=== PATIENT | male | born 1950 | race Caucasian/White ===

== ENCOUNTER 2018-07-04 19:26 | Observation (INO) | payer MEDICARE ==
[2018-07-04 19:41] LABS: Glucose,Whole Blood 404 mg/dL (75-99)
[2018-07-04] MEDS ORDERED: SODIUM CHLORIDE 0.9% 500 ML 500 ML IV ONE (20:22)
[2018-07-04] MEDS ORDERED: SODIUM CHLORIDE 0.9% 1,000 ML IV ONE (20:22)
[2018-07-04] MEDS ORDERED: ONDANSETRON 4 MG/2 ML VIAL IVP STA (20:22)
--- NOTE | 2018-07-04 20:26 | ED ---
General Adult HPI - General Chief complaint: Weakness Stated complaint: DM Time Seen by Provider: 07/04/18 19:58 Source: patient Mode of arrival: wheelchair Limitations: no limitations - History of Present Illness Initial comments: 68-year-old male patient with past medical history significant for type 2 diabetes mellitus, hyperlipidemia, and hypertension presents to the emergency department today for evaluation of generalized weakness, nausea, increased thirst, and frequency of urination. Patient states that he had an appointment with his physician on Thursday due to frequency of urination, dry mouth, and increased thirst and was told that his blood sugars are out of control. He was started on Levemir once daily. States he has been taking the medication over the weekend however today he became significantly more weak and dizzy. States that his mouth has been extremely dry and he cannot get enough to drink. Patient states he has been nauseated on and off throughout the day today but has not vomited. Denies any abdominal pain, chest pain, shortness of breath, focal weakness, numbness, or tingling to the extremities. States he has had increase in blurred vision. Denies any headaches. Patient denies any recent rash, fever, chills, diarrhea, constipation, back pain, numbness, tingling, hematuria, dysuria, or any other complaints. - Related Data Home Medications Medication Instructions Recorded Confirmed Aspirin [[place] Aspirin EC] 81 mg PO DAILY 07/04/18 07/04/18 Focus Macula Pro (Unknown) 1 tab PO DAILY 07/04/18 07/04/18 Hydrochlorothiazide 25 mg PO DAILY 07/04/18 07/04/18 Insulin Detemir (Levemir) [Levemir] 20 units SQ HS 07/04/18 07/04/18 Montelukast [Singulair] 10 mg PO DAILY 07/04/18 07/04/18 Pravastatin Sodium [Pravachol] 40 mg PO DAILY 07/04/18 07/04/18 Propylene Glycol/Peg 400/Pf 1 drop BOTH EYES DAILY 07/04/18 07/04/18 [Systane 0.3-0.4% Eye Drop] Valsartan [Diovan] 160 mg PO DAILY 07/04/18 07/04/18 metFORMIN HCL [Glucophage] 500 mg PO BID 07/04/18 07/04/18 Allergies Allergy/AdvReac Type Severity Reaction Status Date / Time Iodinated Contrast- Oral and Allergy Anaphylaxis Verified 07/04/18 20:45 IV Dye Review of Systems ROS Statement: Those systems with pertinent positive or pertinent negative responses have been documented in the HPI. ROS Other: All systems not noted in ROS Statement are negative. Past Medical History Past Medical History: Diabetes Mellitus, Hyperlipidemia, Hypertension History of Any Multi-Drug Resistant Organisms: None Reported Past Surgical History: Hernia Repair, Orthopedic Surgery Additional Past Surgical History / Comment(s): melanoma with three surgeries, Past Psychological History: No Psychological Hx Reported Smoking Status: Never smoker Past Alcohol Use History: None Reported Past Drug Use History: None Reported General Exam Limitations: no limitations General appearance: alert, in no apparent distress, other (Physical well- developed, well-nourished elderly male patient in no acute distress. Vital signs upon presentation are temperature 98.6F, pulse 122, respirations 18, blood pressure 106/79, pulse ox 93% on room air.) Eye exam: Present: normal appearance, PERRL, EOMI. Absent: scleral icterus, conjunctival injection, periorbital swelling ENT exam: Present: normal exam, normal oropharynx. Absent: mucous membranes moist (Dry mouth) Neck exam: Present: normal inspection. Absent: tenderness, meningismus, lymphadenopathy Respiratory exam: Present: normal lung sounds bilaterally. Absent: respiratory distress, wheezes, rales, rhonchi, stridor Cardiovascular Exam: Present: normal rhythm, tachycardia, normal heart sounds. Absent: systolic murmur, diastolic murmur, rubs, gallop, clicks GI/Abdominal exam: Present: soft, normal bowel sounds. Absent: distended, tenderness, guarding, rebound, rigid Neurological exam: Present: alert, oriented X3, CN II-XII intact, other (Strength in all 4 extremities are 5/5.) Psychiatric exam: Present: normal affect, normal mood Skin exam: Present: warm, dry, intact, normal color. Absent: rash Course Vital Signs 07/04/18 07/05/18 19:27 01:07 Temperature 98.6 F Pulse Rate 122 H Pulse Rate [ 112 H Swaging Machine Operator ] Pulse Rate [ 125 H Pulse Oximetery ] Respiratory 18 Rate Blood Pressure 106/79 Blood Pressure 87/62 [Right Arm Sitting] Blood Pressure 87/65 [Right Arm Standing] Blood Pressure 121/71 [Right Arm Supine] O2 Sat by Pulse 93 L Oximetry EKG Findings - EKG Comments: EKG Findings:: EKG obtained at 194 shows sinus tachycardia with a ventricular rate of 116, PA interval 156, QRS duration 86, QT 344, QTC 478. No evidence of ST elevation or depression. Medical Decision Making - Medical Decision Making 68-year-old male patient with past medical history significant for type 2 diabetes mellitus presents to the emergency department today for evaluation of dizziness, elevated blood sugar, dry mouth, increased thirst and frequency of urination. Patient does admit to eating cake, ice cream, pizza, and cereal over the last couple days. Physical examination is relatively unremarkable. Abdomen soft and nontender. Patient is neurologically intact with no focal deficits. Patient was given 2 L of IV fluids here in the emergency department as well as IV insulin. Blood sugars did improve however patient continued to report feeling significantly dizzy and weak. After 2 L we did check orthostatic vital signs patient did have positive orthostatics with blood pressure down to 80s systolic with a heart rate in the 120s. Patient was given an additional 1 L bolus. Patient does not have glucometer at home and does live alone, he does not feel comfortable being discharged this time. We'll admit to the hospital for dehydration and hyperglycemia. We'll consult diabetes education. We will order a sliding scale insulin for coverage in the hospital. He'll be admitted to Dr. Apodaca. - Lab Data Result diagrams: 07/04/18 19:46 07/04/18 19:46 Lab Results 07/04/18 07/04/18 07/04/18 Range/Units 19:40 19:46 19:46 WBC 8.7 (3.8-10.6) k/uL RBC 5.57 (4.30-5.90) m/uL Hgb 16.6 (13.0-17.5) gm/dL Hct 47.4 (39.0-53.0) % MCV 85.2 (80.0-100.0) fL MCH 29.9 (25.0-35.0) pg MCHC 35.1 (31.0-37.0) g/dL RDW 13.0 (11.5-15.5) % Plt Count 178 (150-450) k/uL Neutrophils % 89 % Lymphocytes % 5 % Monocytes % 4 % Eosinophils % 1 % Basophils % 0 % Neutrophils # 7.7 (1.3-7.7) k/uL Lymphocytes # 0.5 L (1.0-4.8) k/uL Monocytes # 0.4 (0-1.0) k/uL Eosinophils # 0.1 (0-0.7) k/uL Basophils # 0.0 (0-0.2) k/uL Sodium 136 L (137-145) mmol/L Potassium 4.1 (3.5-5.1) mmol/L Chloride 100 (98-107) mmol/L Carbon Dioxide 24 (22-30) mmol/L Anion Gap 12 mmol/L BUN 20 (9-20) mg/dL Creatinine 1.18 (0.66-1.25) mg/dL Est GFR (CKD-EPI)AfAm 73 (>60 ml/min/1.73 sqM) Est GFR (CKD-EPI)NonAf 64 (>60 ml/min/1.73 sqM) Glucose 385 H (74-99) mg/dL POC Glucose (mg/dL) 404 H (75-99) mg/dL POC Glu System Safety Engineer ID Arft, Ulises Calcium 9.7 (8.4-10.2) mg/dL Total Bilirubin 0.8 (0.2-1.3) mg/dL AST 37 (17-59) U/L ALT 50 (21-72) U/L Alkaline Phosphatase 81 (38-126) U/L Total Protein 7.1 (6.3-8.2) g/dL Albumin 4.3 (3.5-5.0) g/dL Urine Color Urine Appearance (Clear) Urine pH (5.0-8.0) Ur Specific [place] (1.001-1.035) Urine Protein (Negative) Urine Glucose (UA) (Negative) Urine Ketones (Negative) Urine Blood (Negative) Urine Nitrite (Negative) Urine Bilirubin (Negative) Urine Urobilinogen (<2.0) mg/dL Ur Leukocyte Esterase (Negative) Acetone, Qual Negative (Negative) 07/04/18 07/04/18 07/04/18 Range/Units 21:15 21:38 22:27 WBC (3.8-10.6) k/uL RBC (4.30-5.90) m/uL Hgb (13.0-17.5) gm/dL Hct (39.0-53.0) % MCV (80.0-100.0) fL MCH (25.0-35.0) pg MCHC (31.0-37.0) g/dL RDW (11.5-15.5) % Plt Count (150-450) k/uL Neutrophils % % Lymphocytes % % Monocytes % % Eosinophils % % Basophils % % Neutrophils # (1.3-7.7) k/uL Lymphocytes # (1.0-4.8) k/uL Monocytes # (0-1.0) k/uL Eosinophils # (0-0.7) k/uL Basophils # (0-0.2) k/uL Sodium (137-145) mmol/L Potassium (3.5-5.1) mmol/L Chloride (98-107) mmol/L Carbon Dioxide (22-30) mmol/L Anion Gap mmol/L BUN (9-20) mg/dL Creatinine (0.66-1.25) mg/dL Est GFR (CKD-EPI)AfAm (>60 ml/min/1.73 sqM) Est GFR (CKD-EPI)NonAf (>60 ml/min/1.73 sqM) Glucose (74-99) mg/dL POC Glucose (mg/dL) 336 H 398 H (75-99) mg/dL POC Glu System Safety Engineer ID Arft, Gabby Saenz A Calcium (8.4-10.2) mg/dL Total Bilirubin (0.2-1.3) mg/dL AST (17-59) U/L ALT (21-72) U/L Alkaline Phosphatase (38-126) U/L Total Protein (6.3-8.2) g/dL Albumin (3.5-5.0) g/dL Urine Color Yellow Urine Appearance Clear (Clear) Urine pH 5.5 (5.0-8.0) Ur Specific [place] 1.027 (1.001-1.035) Urine Protein Trace H (Negative) Urine Glucose (UA) 4+ H (Negative) Urine Ketones 1+ H (Negative) Urine Blood Negative (Negative) Urine Nitrite Negative (Negative) Urine Bilirubin Negative (Negative) Urine Urobilinogen <2.0 (<2.0) mg/dL Ur Leukocyte Esterase Negative (Negative) Acetone, Qual (Negative) 03/11/19 Range/Units 00:04 WBC (3.8-10.6) k/uL RBC (4.30-5.90) m/uL Hgb (13.0-17.5) gm/dL Hct (39.0-53.0) % MCV (80.0-100.0) fL MCH (25.0-35.0) pg MCHC (31.0-37.0) g/dL RDW (11.5-15.5) % Plt Count (150-450) k/uL Neutrophils % % Lymphocytes % % Monocytes % % Eosinophils % % Basophils % % Neutrophils # (1.3-7.7) k/uL Lymphocytes # (1.0-4.8) k/uL Monocytes # (0-1.0) k/uL Eosinophils # (0-0.7) k/uL Basophils # (0-0.2) k/uL Sodium (137-145) mmol/L Potassium (3.5-5.1) mmol/L Chloride (98-107) mmol/L Carbon Dioxide (22-30) mmol/L Anion Gap mmol/L BUN (9-20) mg/dL Creatinine (0.66-1.25) mg/dL Est GFR (CKD-EPI)AfAm (>60 ml/min/1.73 sqM) Est GFR (CKD-EPI)NonAf (>60 ml/min/1.73 sqM) Glucose (74-99) mg/dL POC Glucose (mg/dL) 298 H (75-99) mg/dL POC Glu System Safety Engineer ID Gabby Lazcano A Calcium (8.4-10.2) mg/dL Total Bilirubin (0.2-1.3) mg/dL AST (17-59) U/L ALT (21-72) U/L Alkaline Phosphatase (38-126) U/L Total Protein (6.3-8.2) g/dL Albumin (3.5-5.0) g/dL Urine Color Urine Appearance (Clear) Urine pH (5.0-8.0) Ur Specific [place] (1.001-1.035) Urine Protein (Negative) Urine Glucose (UA) (Negative) Urine Ketones (Negative) Urine Blood (Negative) Urine Nitrite (Negative) Urine Bilirubin (Negative) Urine Urobilinogen (<2.0) mg/dL Ur Leukocyte Esterase (Negative) Acetone, Qual (Negative) Disposition Clinical Impression: Hyperglycemia, Dehydration Disposition[facility] Condition: Serious Referrals: Samson Apodaca MD [Primary Care Provider] - 1-2 days Decision to Admit Reason: Admit from EC Decision Date: 07/05/18 Decision Time: 01:24
[2018-07-04 20:38] LABS: Basophils % (A) 0 %; Eosinophils # (A) 0.1 k/uL (0-0.7); Eosinophils % (A) 1 %; HCT 47.4 % (39.0-53.0); HGB 16.6 gm/dL (13.0-17.5); Lymphocytes # (A) 0.5 k/uL (1.0-4.8); Lymphocytes % (A) 5 %; MCH 29.9 pg (25.0-35.0); MCHC 35.1 g/dL (31.0-37.0); MCV 85.2 fL (80.0-100.0); Mean Platelet Volume 8.7; Monocytes # (A) 0.4 k/uL (0-1.0); Monocytes % (A) 4 %; Neutrophils # (A) 7.7 k/uL (1.3-7.7); Neutrophils % (A) 89 %; Platelet Count 178 k/uL (150-450); RBC 5.57 m/uL (4.30-5.90); WBC 8.7 k/uL (3.8-10.6)
[2018-07-04 20:47] LABS: ALT 50 U/L (21-72); AST 37 U/L (17-59); Albumin 4.3 g/dL (3.5-5.0); Alkaline Phosphatase 81 U/L (38-126); Anion Gap 12 mmol/L; Blood Urea Nitrogen 20 mg/dL (9-20); Calcium 9.7 mg/dL (8.4-10.2); Carbon Dioxide 24 mmol/L (22-30); Chloride 100 mmol/L (98-107); Glucose 385 mg/dL (74-99); Potassium 4.1 mmol/L (3.5-5.1); Sodium 136 mmol/L (137-145); Total Bilirubin 0.8 mg/dL (0.2-1.3); Total Protein 7.1 g/dL (6.3-8.2)
[2018-07-04] MEDS ORDERED: INSULIN ASPART (NovoLOG) 100 UNIT/ML VIAL SQ ONE (21:21)
[2018-07-04 21:30] LABS: Appearance,Urine Clear (Clear); Bilirubin,Urine Negative (Negative); Blood,Urine Negative (Negative); Color,Urine Yellow; Glucose,Urine (UA) 4+ (Negative); Ketones,Urine 1+ (Negative); Leukocyte Esterase,Urine Negative (Negative); Nitrite,Urine Negative (Negative); PH, Urine 5.5 (5.0-8.0); Protein,Urine Trace (Negative); Specific Gravity,Urine 1.027 (1.001-1.035); Urobilinogen,Urine <2.0 mg/dL (<2.0)
[2018-07-04 22:02] LABS: Glucose,Whole Blood 336 mg/dL (75-99)
[2018-07-04 22:37] LABS: Glucose,Whole Blood 398 mg/dL (75-99)
[2018-07-04] MEDS ORDERED: INSULIN REGULAR 100 UNIT/ML VIAL IV ONE (22:44)
[2018-07-05 00:15] LABS: Glucose,Whole Blood 298 mg/dL (75-99)
[2018-07-05] MEDS ORDERED: INSULIN REGULAR 100 UNIT/ML VIAL IV STA (00:18)
[2018-07-05] MEDS ORDERED: SODIUM CHLORIDE 0.9% 1,000 ML IV ONE (01:20)
[2018-07-05] MEDS ORDERED: NALOXONE 0.4 MG/ML 1 ML VIAL IV PRN (01:21)
[2018-07-05] MEDS ORDERED: ONDANSETRON 4 MG/2 ML VIAL IVP PRN (01:21)
[2018-07-05] MEDS ORDERED: SODIUM CHLORIDE 0.9% 1,000 ML IV SCH (01:30)
[2018-07-05 02:26] LABS: Glucose,Whole Blood 263 mg/dL (75-99)
[2018-07-05 07:06] LABS: Glucose,Whole Blood 368 mg/dL (75-99)
[2018-07-05] MEDS ORDERED: ACETAMINOPHEN TAB 500 MG TAB PO PRN (08:19)
--- NOTE | 2018-07-05 08:35 | P.HPIM ---
History of Present Illness Chief complaint Weakness History of present illness The patient has a history of type 2 diabetes controlled on oral medications inc luding metformin but has more recently had increase in her blood sugars at home and recently found to have a blood sugar over 400. Last week he was instructed on starting insulin therapy along with obtaining a new home monitor and further dietary instructions and outpatient referrals. Over the weekend patient continued to have for the polyuria and polydipsia associated with weakness and dizziness. Some nausea but no vomiting. No chest pain or shortness of breath. No fever or chills. Past medical history Type 2 diabetes Obesity Hypertension Atherosclerotic heart disease Hyperlipidemia Insomnia Previous surgical history includes an appendectomy and hernia repair. ALLERGIES to iodine contrast, oral and IV dye. Anaphylaxis. Home medications Metformin 500 mg twice a day Diovan 160 mg daily Systane eyedrops 0.3-0.4% 1 drop both eyes daily Pravastatin 40 mg daily Singular 10 mg daily Recently started on Levemir 20 units subcu at at bedtime Hydrochlorothiazide 25 mg daily Aspirin 81 mg daily Review of systems The patient has had some blurred vision. No unusual headaches. Some nausea but no vomiting. No chest pain. No cough. No fever or chills. Patient has had some loose stools. No blood per rectum. No unusual abdominal pain. No unusual edema or leg pain. No focal weakness. Family history Unremarkable. Social history Patient continues to work as a realtor Does not smoke or use alcohol to excess. Lives locally in the [facility]. Physical examination This morning he is sitting up in bed. States he feels somewhat better. Vital signs have revealed some low blood pressures down to 84/57. Presently 115/70. Also pulse has been increased to 125 but is now down to 105. Temperature 99.6. Respirations 18-20. 88% saturated. HEENT is unremarkable. Extraocular movements are intact. Neck is not stiff. No carotid bruits. No thyromegaly or adenopathy. Lungs are clear to auscultation. Heart tones were slightly tachycardia but regular without murmurs or rubs ap preciated. Abdomen is obese but nontender. No organomegaly. No rebound guarding or masses. Genital and rectal exam deferred. Extremities revealed no unusual edema. No open sores. Neurologically he is alert and oriented. No cranial nerve deficits. No focal weakness. Laboratory White count 8.7 with a hemoglobin 16.6 and a platelet count of 178. Sodium is 136 with potassium 4.1. CO2 content was 24. BUN of 20 with creatinine 1.18 given him a GFR of 64. Initial blood sugar was 404. Liver function tests were good. Albumin 4.3. Urinalysis is negative for leukocyte esterase. Positive for glucose 4 pulse. Trace protein. Acetone negative. EKG showed sinus tachycardia. No acute ischemic changes Impressions 1. Type 2 diabetes with elevated blood sugar results and then polyuria and polydipsia along with relative hypovolemia with hypotension and weakness 2. Past medical history as stated above with type 2 diabetes, hypertension, obesity, hyperlipidemia and coronary artery disease. Plans Continue aggressive IV fluid replacement. Regular and long-acting insulin. Further diabetic education. Consult with endocrinology. Follow-up blood testing. Discussed with patient at bedside this morning. Past Medical History Past Medical History: Diabetes Mellitus, Hyperlipidemia, Hypertension History of Any Multi-Drug Resistant Organisms: None Reported Past Surgical History: Hernia Repair, Orthopedic Surgery Additional Past Surgical History / Comment(s): melanoma with three surgeries, Past Psychological History: No Psychological Hx Reported Smoking Status: Never smoker Past Alcohol Use History: None Reported Past Drug Use History: None Reported - Past Family History Father Family Medical History: Diabetes Mellitus Mother Family Medical History: Diabetes Mellitus Medications and Allergies Home Medications Medication Instructions Recorded Confirmed Type Aspirin [[place] Aspirin EC] 81 mg PO DAILY 07/04/18 07/04/18 History Focus Macula Pro (Unknown) 1 tab PO DAILY 07/04/18 07/04/18 History Hydrochlorothiazide 25 mg PO DAILY 07/04/18 07/04/18 History Insulin Detemir (Levemir) [Levemir] 20 units SQ HS 07/04/18 07/04/18 History Montelukast [Singulair] 10 mg PO DAILY 07/04/18 07/04/18 History Pravastatin Sodium [Pravachol] 40 mg PO DAILY 07/04/18 07/04/18 History Propylene Glycol/Peg 400/Pf 1 drop BOTH EYES DAILY 07/04/18 07/04/18 History [Systane 0.3-0.4% Eye Drop] Valsartan [Diovan] 160 mg PO DAILY 07/04/18 07/04/18 History metFORMIN HCL [Glucophage] 500 mg PO BID 07/04/18 07/04/18 History Allergies Allergy/AdvReac Type Severity Reaction Status Date / Time Iodinated Contrast- Oral and Allergy Anaphylaxis Verified 07/04/18 20:45 IV Dye Physical Exam Vitals: Vital Signs Temp Pulse Pulse Pulse Resp BP BP 07/05/18 02:58 120 H 20 07/05/18 02:57 110 H 18 102/69 07/05/18 02:55 99.6 F 99 18 07/05/18 01:07 112 H 125 H 87/62 07/04/18 19:27 98.6 F 122 H 18 106/79 BP BP Pulse Ox 07/05/18 02:58 84/57 88 L 07/05/18 02:57 89 L 07/05/18 02:55 113/71 90 L 07/05/18 01:07 87/65 121/71 07/04/18 19:27 93 L Intake and Output 07/04/18 07/05/18 07/05/18 22:59 06:59 14:59 Intake Total 2950 Balance 2950 Intake: Intake, IV Titration 2750 Amount Sodium Chloride 0.9% 1, 250 000 ml @ 80 mls/hr IV . [id number] JADON Rx#:[id number] Sodium Chloride 0.9% 1, 1000 000 ml @ 999 mls/hr IV . Q1H1M ONE Rx#:[id number] Sodium Chloride 0.9% 1, 1000 000 ml @ 999 mls/hr IV . Q1H1M ONE Rx#:[id number] Sodium Chloride 0.9% 500 500 ml 500 ml @ 999 mls/hr IV .Q31M ONE Rx#:[id number] Oral 200 Other: # Voids 2 # Bowel Movements 1 Weight 120.202 kg Results CBC & Chem 7: 07/04/18 19:46 07/04/18 19:46 Labs: Abnormal Lab Results - Last 24 Hours (Table) 07/04/18 07/04/18 07/04/18 Range/Units 19:40 19:46 19:46 Lymphocytes # 0.5 L (1.0-4.8) k/uL Sodium 136 L (137-145) mmol/L Glucose 385 H (74-99) mg/dL POC Glucose (mg/dL) 404 H (75-99) mg/dL Urine Protein (Negative) Urine Glucose (UA) (Negative) Urine Ketones (Negative) 07/04/18 07/04/18 07/04/18 Range/Units 21:15 21:38 22:27 Lymphocytes # (1.0-4.8) k/uL Sodium (137-145) mmol/L Glucose (74-99) mg/dL POC Glucose (mg/dL) 336 H 398 H (75-99) mg/dL Urine Protein Trace H (Negative) Urine Glucose (UA) 4+ H (Negative) Urine Ketones 1+ H (Negative) 07/05/18 07/05/18 07/05/18 Range/Units 00:04 02:16 06:58 Lymphocytes # (1.0-4.8) k/uL Sodium (137-145) mmol/L Glucose (74-99) mg/dL POC Glucose (mg/dL) 298 H 263 H 368 H (75-99) mg/dL Urine Protein (Negative) Urine Glucose (UA) (Negative) Urine Ketones (Negative) Thrombosis Risk Factor Assmnt - Choose All That Apply Any of the Below Risk Factors Present?: Yes Each Factor Represents 1 point: Obesity (BMI >25) Other Risk Factors: Yes Each Risk Factor Represents 2 Points: Age 61-74 years Thrombosis Risk Factor Assessment Total Risk Factor Score: 3 Thrombosis Risk Factor Assessment Level: Moderate Risk
[2018-07-05] MEDS: INSULIN ASPART (NovoLOG) 100 UNIT/ML VIAL SQ SCH ×4 (10:28→21:06)
[2018-07-05] MEDS: SODIUM CHLORIDE 0.9% 1,000 ML IV SCH ×2 (10:33→17:18)
[2018-07-05] MEDS: PRAVASTATIN SODIUM 40 MG TAB PO SCH (11:16)
[2018-07-05] MEDS: metFORMIN 500 MG TAB PO SCH ×2 (11:16→17:46)
[2018-07-05] MEDS: MONTELUKAST 10 MG TAB PO SCH (11:16)
[2018-07-05] MEDS: ARTIFICIAL TEARS-HYPROMELLOSE DROPS 15 ML BTL BOTH EYES SCH (11:16)
[2018-07-05] MEDS: ASPIRIN 81 MG PO SCH (11:16)
[2018-07-05 11:55] LABS: Glucose,Whole Blood 288 mg/dL (75-99)
[2018-07-05 15:12] VITALS: BMI 36.9
[2018-07-05 17:05] LABS: Glucose,Whole Blood 273 mg/dL (75-99)
[2018-07-05 20:50] LABS: Glucose,Whole Blood 223 mg/dL (75-99)
[2018-07-05] MEDS ORDERED: INSULIN DETEMIR (LEVEMIR) 100 UNIT/ML SYR SQ SCH (21:00)
[2018-07-06 07:06] LABS: Glucose,Whole Blood 259 mg/dL (75-99)
[2018-07-06] MEDS: SODIUM CHLORIDE 0.9% 1,000 ML IV SCH (08:09)
[2018-07-06] MEDS: ASPIRIN 81 MG PO SCH (08:11)
[2018-07-06] MEDS: MONTELUKAST 10 MG TAB PO SCH (08:11)
[2018-07-06] MEDS: PRAVASTATIN SODIUM 40 MG TAB PO SCH (08:11)
[2018-07-06] MEDS: INSULIN ASPART (NovoLOG) 100 UNIT/ML VIAL SQ SCH ×4 (08:11→21:17)
[2018-07-06] MEDS: metFORMIN 500 MG TAB PO SCH ×2 (08:11→17:47)
[2018-07-06] MEDS: ARTIFICIAL TEARS-HYPROMELLOSE DROPS 15 ML BTL BOTH EYES SCH (08:12)
[2018-07-06 08:33] LABS: Albumin 2.9 g/dL (3.5-5.0); Calcium 7.4 mg/dL (8.4-10.2); Total Bilirubin 0.5 mg/dL (0.2-1.3); Total Protein 5.3 g/dL (6.3-8.2)
--- NOTE | 2018-07-06 08:53 | P.PN ---
Progress Note - Text The patient is a 68-year-old male who presented with uncontrolled blood sugars in the 4-500 range. He did have a prior history of type 2 diabetes controlled on oral medications. He had gained weight and was not following his diet. They'll worsening symptoms of polyuria, polydipsia and weakness. At this time he has been placed on regular insulin coverage before meals and long-acting Levemir. Sugars are trending downward and patient clinically feels better but appears to be more depressed over his medical condition. Vital signs show a temperature of 99.2 with a pulse of 95 and respirations 14. Blood pressure 134/82 and he is 93% saturated on room air. Lung and heart exam was clear. Abdomen nontender. No unusual edema. No neurological deficits. Laboratory Sodium was 137 with potassium 3.0 and a CO2 content of 20. BUN of 15 with creatinine 1.09 Blood sugar was 208. Albumin is slightly low at 2.9. Impressions and plans Discussed with patient at length regarding his diabetes and need to control multiple factors. Diet, activity and overall weight. Discussed the different types of insulin regarding long and short acting insulins. Try to continue to encourage him to take part in his own diabetic control. Prescription signed here at the desk and also forms from the office for his diabetic supplies. We will increase his Levemir to 46 units tonight. Potassium replacement therapy with IV and oral replacement. Losartan has been resumed at slightly lower dose than when he was on at home. I would like patient to be able to be discharged home on his long-acting insulin along with short acting insulin before meals hopefully over the next 24 hours with continued improvement. This was discussed with patient at bedside this morning. Basic metabolic panel ordered for the morning.
[2018-07-06] MEDS: VALSARTAN 80 MG TAB PO SCH (09:28)
[2018-07-06] MEDS: POTASSIUM CHLORIDE ER 20 MEQ TAB.ER PO SCH ×2 (09:28→21:16)
[2018-07-06] MEDS: SODIUM CHLORIDE 0.9% 1,000 ML with POTASSIUM CHLORIDE 30 MEQ IV SCH ×4 (10:11→21:15)
[2018-07-06 11:46] LABS: Glucose,Whole Blood 206 mg/dL (75-99)
[2018-07-06 15:33] VITALS: RESP 16
[2018-07-06 17:29] LABS: Glucose,Whole Blood 212 mg/dL (75-99)
[2018-07-06 21:00] LABS: Glucose,Whole Blood 233 mg/dL (75-99)
[2018-07-06] MEDS ORDERED: INSULIN DETEMIR (LEVEMIR) 100 UNIT/ML SYR SQ SCH (21:00)
[2018-07-07 07:18] LABS: Glucose,Whole Blood 88 mg/dL (75-99)
[2018-07-07] MEDS: INSULIN ASPART (NovoLOG) 100 UNIT/ML VIAL SQ SCH ×2 (08:11→12:51)
[2018-07-07] MEDS: SODIUM CHLORIDE 0.9% 1,000 ML with POTASSIUM CHLORIDE 30 MEQ IV SCH ×2 (08:11)
[2018-07-07] MEDS: ARTIFICIAL TEARS-HYPROMELLOSE DROPS 15 ML BTL BOTH EYES SCH (08:12)
[2018-07-07 08:38] LABS: Potassium 3.4 mmol/L (3.5-5.1)
--- NOTE | 2018-07-07 08:46 | P.PN ---
Progress Note - Text The patient is a 68-year-old gentleman presented with uncontrolled blood sugars in the 4-500 range. Previous history of type 2 diabetes on oral medications. Patient was polyuric and polydipsia, along with weakness and hypovolemic with lower blood pressures. No evidence of underlying infection. The patient has improved on IV fluids along with electrolyte replacement and insulin therapies. He generally feels better this morning. Blood sugars down to 88. Polyuria and polydipsia has improved. He denies any unusual symptoms such as chest pain, shortness of breath or nausea or vomiting. He is having some loose stools. No blood per rectum. Vital signs show temperature 98.3 with a pulse of 95 and respirations 16. Blood pressure 116/70 and he is 95% saturated on room air. Lung and heart exam was clear and regular. Abdomen is nontender. No unusual distal edema. Neurologically he is alert and oriented without focal deficits. Laboratory Sodium 141 with potassium 3.4. CO2 content was 23. BUN of 12 with a creatinine of 1.0 given him a GFR of 78. Blood sugar was 80. Calcium 8.0. Impressions and plans Patient's hyperglycemia has resolved. He is euvolemic. Blood pressures and pulse are better. At this time plans are to discharge to home. Patient will resume his home medications. Metformin 500 mg twice a day Diovan 160 mg daily Pravastatin 40 mg daily Singular 10 mg daily Can continue his Systane eyedrops. Hydrochlorothiazide 25 mg daily/recommend patient to hold at this time. He is to take his Levemir at 40 units each night. Regular insulin 6 units before each meal. Potassium chloride 20 mEq of 1 daily will be sent to his local [facility] pharmacy along with his other prescriptions in [employer] He is to have follow-up outpatient further diabetic education and treatment. He is to follow up in office next week. He is to call office any concerns or problems should arise. Increasing his activity along with proper diet was discussed. Hypoglycemia along with the symptoms and treatment discussed. Dr. Alfred is telephone recorder for me today and tomorrow if any concerns or problems should arise.
[2018-07-07] MEDS: PRAVASTATIN SODIUM 40 MG TAB PO SCH (08:48)
[2018-07-07] MEDS: VALSARTAN 80 MG TAB PO SCH (08:48)
[2018-07-07] MEDS: MONTELUKAST 10 MG TAB PO SCH (08:48)
[2018-07-07] MEDS: metFORMIN 500 MG TAB PO SCH (08:48)
[2018-07-07] MEDS: POTASSIUM CHLORIDE ER 20 MEQ TAB.ER PO SCH (08:49)
[2018-07-07] MEDS: ASPIRIN 81 MG PO SCH (08:49)
[2018-07-07 08:54] VITALS: BP 158/79; PULSE 84; TEMP 98.1
[2018-07-07 12:11] LABS: Glucose,Whole Blood 202 mg/dL (75-99)
== END 2018-07-07 14:45 | disposition home or self-care (01) ==
LOC: EC 19:26 → 4SSUR 07-05 01:27
PROVIDERS: ADMIT Internal Medicine; ATTEND Internal Medicine
DX: E11.65 Type 2 diabetes mellitus with hyperglycemia (principal); E86.0 Dehydration; E78.5 Hyperlipidemia, unspecified; I10 Essential (primary) hypertension; E86.1 Hypovolemia; I95.9 Hypotension, unspecified; R11.0 Nausea; E66.9 Obesity, unspecified; Z68.37 Body mass index [BMI] 37.0-37.9, adult; I25.10 Atherosclerotic heart disease of native coronary artery without angina pectoris; G47.00 Insomnia, unspecified; Z91.041 Radiographic dye allergy status; Z79.899 Other long term (current) drug therapy; Z79.82 Long term (current) use of aspirin; Z79.84 Long term (current) use of oral hypoglycemic drugs; Z79.4 Long term (current) use of insulin; Z85.820 Personal history of malignant melanoma of skin
CPT/HCPCS: 96361 ×2; 96374; 99285; 36415 ×2; 93005; 80053 ×2; 80048; 82009; 85025; 81003; 83036; G0378 ×3; J2405; J3480

== ENCOUNTER → 2019-04-21 | Outpatient (CLI) | payer MEDICARE ==
--- NOTE | 2019-04-21 12:59 | US ---
EXAMINATION TYPE: US carotid duplex BILAT DATE OF EXAM: 04/21/2019 COMPARISON: NONE CLINICAL HISTORY: R09.89 Carotid Bruit, R01.1 Murmur, R00.2 SOB. EXAM MEASUREMENTS: RIGHT: Peak Systolic Velocity (PSV) cm/sec ----- Right CCA: 105.5 ----- Right ICA: 70.7 ----- Right ECA: 104.3 ICA/CCA ratio: 0.7 RIGHT: End Diastole cm/sec ----- Right CCA: 29.9 ----- Right ICA: 29.2 ----- Right ECA: 22.0 LEFT: Peak Systolic Velocity (PSV) cm/sec ----- Left CCA: 109.5 ----- Left ICA: 94.1 ----- Left ECA: 95.2 ICA/CCA ratio: 0.9 LEFT: End Diastole cm/sec ----- Left CCA: 30.7 ----- Left ICA: 24.8 ----- Left ECA: 0.0 VERTEBRALS (direction of flow): Right Vertebral: Antegrade Left Vertebral: Antegrade Rhythm: Normal Mild intimal wall thickening is noted at bilateral carotid bifurcation. Grayscale, color Doppler, spectral Doppler imaging performed of the carotid arteries. Waveform analys is does not show significant stenosis of the internal carotid arteries by Doppler criteria. IMPRESSION: No hemodynamic significant stenosis of the proximal internal carotid arteries by Dopple r criteria, an indirect measurement of carotid stenosis
--- NOTE | 2019-04-22 19:04 | ECHOF ---
Referral Reason:R01.1 cardiac murmurs MEASUREMENTS -------- HEIGHT: 180.3 cm WEIGHT: 122.5 kg BP: 166/84 RVIDd: 3.5 cm (< 3.3) IVSd: 1.5 cm (0.6 - 1.1) LVIDd: 4.6 cm (3.9 - 5.3) LVPWd: 1.6 cm (0.6 - 1.1) IVSs: 2.3 cm LVIDs: 3.1 cm LVPWs: 2.0 cm LA Diam: 3.1 cm (2.7 - 3.8) LAESV Index (A-L): 17.51 ml/m Ao Diam: 3.5 cm (2.0 - 3.7) AV Cusp: 1.6 cm (1.5 - 2.6) MV EXCURSION: 16.594 mm (> 18.000) MV EF SLOPE: 47 mm/s (70 - 150) EPSS: 0.7 cm MV E Yahir: 0.73 m/s MV DecT: 256 ms MV A Yahir: 0.98 m/s MV E/A Ratio: 0.75 AV maxP.32 mmHg AV meanP.90 mmHg AR PHT: 679 ms FINDINGS -------- Sinus rhythm. This was a technically adequate study. The left ventricular size is normal. There is moderate concentric left ventricular hypertrophy. O verall left ventricular systolic function is normal with, an EF between 55 - 60 %. The right ventricle is mildly enlarged. Normal LA size by volume 22+/-6 ml/m2. The right atrial size is normal. Interatrial and interventricular septum intact. There is moderate aortic valve sclerosis. There is mild aortic regurgitation. There is mild aorti c stenosis present. Peak/mean gradient across the Aortic Valve is 24.32mmHg / 12.90mmHg. AOV is p ossible Bicuspid. The mitral valve is normal. There is trace to mild mitral regurgitation. The tricuspid valve appears structurally normal. Trace tricuspid regurgitation present. The pulmonic valve was not well visualized. There is no pulmonic regurgitation present. The aortic root size is normal. IVC Not well visulized. There is no pericardial effusion. CONCLUSIONS -------- 1. Sinus rhythm. 2. This was a technically adequate study. 3. The left ventricular size is normal. 4. There is moderate concentric left ventricular hypertrophy. 5. Overall left ventricular systolic function is normal with, an EF between 55 - 60 %. 6. The right ventricle is mildly enlarged. 7. Normal LA size by volume 22+/-6 ml/m2. 8. There is moderate aortic valve sclerosis. 9. There is mild aortic regurgitation. 10. There is mild aortic stenosis present. 11. Peak/mean gradient across the Aortic Valve is 24.32mmHg / 12.90mmHg. 12. AOV is possible Bicuspid. 13. There is trace to mild mitral regurgitation. 14. Trace tricuspid regurgitation present. 15. The pulmonic valve was not well visualized. 16. IVC Not well visulized. 17. There is no pericardial effusion. OIL PRODUCER: Alejandra Valenzuela RDCS
== END | disposition home or self-care (01) ==
LOC: RADUSWWP 11:56
PROVIDERS: ATTEND Family Medicine
DX: I08.0 Rheumatic disorders of both mitral and aortic valves (principal); R09.89 Other specified symptoms and signs involving the circulatory and respiratory systems
CPT/HCPCS: 93306; 93880

== ENCOUNTER → 2019-06-17 | Outpatient (CLI) | payer MEDICARE ==
--- NOTE | 2019-06-17 13:58 | XR ---
EXAMINATION TYPE: XR shoulder complete LT, XR humerus LT DATE OF EXAM: 06/17/2019 CLINICAL HISTORY: pain TECHNIQUE: Frontal and lateral images of the left humerus and shoulder are obtained. COMPARISON: None. FINDINGS: There is no acute fracture/dislocation evident. The joint spaces appear within normal limi ts. Calcific tendinopathy supraspinatus tendon. The overlying soft tissue appears unremarkable. IMPRESSION: There is no acute fracture or dislocation. ICD 10 NO FRACTURE, INITIAL EVALUATION
[2019-06-17 14:31] LABS: Creatine Kinase MB 1.3 ng/mL (0.0-2.4); Troponin I <0.012 ng/mL (0.000-0.034)
--- NOTE | 2019-06-17 16:20 | US ---
EXAMINATION TYPE: US axilla LT DATE OF EXAM: 06/17/2019 COMPARISON: NONE CLINICAL HISTORY: M79.62 PAIN UPPER ARM. Patient has history of skin cancer Left axilla scanned, no masses seen. No suspicious adenopathy is identified. IMPRESSION: 1. Negative left axillary scan.
== END | disposition home or self-care (01) ==
LOC: RADUSWWP 12:43
PROVIDERS: ATTEND Family Medicine
DX: M79.602 Pain in left arm (principal); M25.512 Pain in left shoulder; R06.02 Shortness of breath; Z88.3 Allergy status to other anti-infective agents
CPT/HCPCS: 82553; 83615; 84484; 85379

== ENCOUNTER → 2020-01-09 | Outpatient (CLI) | payer MEDICARE ==
[2020-01-09 10:30] LABS: Basophils # (A) 0.1 k/uL (0-0.2); Basophils % (A) 1 %; Eosinophils # (A) 0.3 k/uL (0-0.7); Eosinophils % (A) 3 %; HCT 47.1 % (39.0-53.0); HGB 15.8 gm/dL (13.0-17.5); Lymphocytes # (A) 2.1 k/uL (1.0-4.8); Lymphocytes % (A) 26 %; MCH 29.3 pg (25.0-35.0); MCHC 33.5 g/dL (31.0-37.0); MCV 87.5 fL (80.0-100.0); Mean Platelet Volume 7.6; Monocytes # (A) 0.5 k/uL (0-1.0); Monocytes % (A) 7 %; Neutrophils % (A) 61 %; Platelet Count 204 k/uL (150-450); RBC 5.39 m/uL (4.30-5.90); RDW 13.3 % (11.5-15.5); WBC 8.1 k/uL (3.8-10.6)
[2020-01-09 10:46] LABS: Appearance,Urine Clear (Clear); Bilirubin,Urine Negative (Negative); Blood,Urine Negative (Negative); Color,Urine Yellow; Glucose,Urine (UA) Negative (Negative); Ketones,Urine Negative (Negative); Leukocyte Esterase,Urine Trace (Negative); Mucus,Urine Rare /hpf; Nitrite,Urine Negative (Negative); Protein,Urine Trace (Negative); RBC,Urine 1 /hpf (0-5); Specific Gravity,Urine 1.019 (1.001-1.035); Squamous Epithelial Cell,Urine <1 /hpf (0-4); Urobilinogen,Urine <2.0 mg/dL (<2.0); WBC,Urine 1 /hpf (0-5)
[2020-01-09 17:39] LABS: Albumin 4.4 g/dL (3.80-4.90); Albumin/Globulin Ratio 2.32 (1.60-3.17); Anion Gap 5.2 mmol/L (4.00-12.00); BUN/Creat Ratio 15.38 Ratio (12.00-20.00); Calcium 9.6 mg/dL (8.7-10.3); Carbon Dioxide 30.8 mmol/L (21.6-31.8); Chol/HDL Ratio 4.53; Globulin 1.9 g/dL (1.6-3.3); Magnesium 1.9 mg/dL (1.5-2.4); Non-African American GFR(CKD) 56.1 (60.0-200.0); Potassium 4.3 mmol/L (3.5-5.5); Total Bilirubin 0.5 mg/dL (0.2-1.2); Total Protein 6.3 g/dL (6.2-8.2)
[2020-01-09 18:40] LABS: INR 0.98 (0.90-1.11); Partial Thromboplastin Time 27.4 sec (24.7-29.9); Prothrombin Time 10.5 sec (9.9-11.9)
[2020-01-09 19:38] LABS: Hemoglobin A1C 7.3 % (4.0-6.0)
[2020-01-09 19:43] LABS: Urine Creatinine 149.3 mg/dL
== END | disposition home or self-care (01) ==
LOC: LABWHC1 08:53
PROVIDERS: ATTEND Family Medicine
DX: Z01.812 Encounter for preprocedural laboratory examination (principal); I10 Essential (primary) hypertension; E11.9 Type 2 diabetes mellitus without complications; E78.5 Hyperlipidemia, unspecified; R35.1 Nocturia; Z12.5 Encounter for screening for malignant neoplasm of prostate; Z79.899 Other long term (current) drug therapy
CPT/HCPCS: 80061; 80053; 82550; 83735; 85025; 85610; 85730; 81001; 87086; 82043; 82570; 83036; 36415; G0103

== ENCOUNTER → 2020-01-11 | Outpatient (CLI) | payer MEDICARE | END | disposition home or self-care (01) | LOC: LABWHC1 12:38 | PROVIDERS: ATTEND Orthopaedic Surgery Sports Medicine | DX: Z01.812 Encounter for preprocedural laboratory examination (principal) | CPT/HCPCS: 87070 ==

== ENCOUNTER 2020-02-16 05:34 | Day surgery (SDC) | payer MEDICARE ==
[2020-02-08 09:46] VITALS: BMI 36.9
[~2020-02-16 05:34] MED LIST: ACETAMINOPHEN TAB 500 MG TAB PO ONE; GABAPENTIN 300 MG CAP PO ONE; MELOXICAM 7.5 MG TAB PO ONE; ONDANSETRON 4 MG/2 ML VIAL IVP ONE; TRANEXAMIC ACID 1,000 MG in SODIUM CHLORIDE 0.9% 100 ML IVPB ONE; ceFAZolin 3 GM in SODIUM CHLORIDE 0.9% 100 ML IVPB ONE
[2020-02-16] MEDS ORDERED: DEXAMETHASONE SOD PHOSPHATE 10 MG/ML 1 ML VIAL IV ONE ×2 (05:39→06:31)
[2020-02-16] MEDS ORDERED: HYDROmorphone 0.5 MG/0.5 ML SYRINGE IVP PRN ×4 (05:39→09:17)
[2020-02-16] MEDS ORDERED: ONDANSETRON 4 MG/2 ML VIAL IVP ONE (05:39)
[2020-02-16] MEDS ORDERED: MIDAZOLAM 2 MG/2 ML VIAL IV PRN (05:39)
[2020-02-16] MEDS: LACTATED RINGERS 1,000 ML IV SCH ×3 (06:24→21:14)
[2020-02-16 06:44] LABS: Glucose,Whole Blood 147 mg/dL (75-99)
[2020-02-16] MEDS ORDERED: PHENYLEPHRINE-0.9% NACL SYG 1 MG/10 ML SYRINGE ONE (06:53)
[2020-02-16] MEDS ORDERED: MIDAZOLAM 2 MG/2 ML VIAL ONE (06:53)
[2020-02-16] MEDS ORDERED: TRANEXAMIC ACID 1,000 MG/10 ML VIAL ONE (06:53)
[2020-02-16] MEDS ORDERED: PROPOFOL 10 MG/ML 20 ML VIAL IV ONE (06:53)
[2020-02-16] MEDS ORDERED: fentaNYL (PF) 50 MCG/ML 2 ML AMP ONE (06:53)
[2020-02-16] MEDS ORDERED: SODIUM CHLORIDE 0.9% 100 ML BAG ONE (06:53)
[2020-02-16] MEDS: ROPIVACAINE 246.25 MG, EPINEPHrine 0.5 MG, KETOROLAC 30 MG, cloNIDine HCL/PF 80 MCG, WA... MISCELLANE ONE ×10 (06:57→08:01)
[2020-02-16] MEDS ORDERED: ceFAZolin 3,000 MG in SODIUM CHLORIDE 0.9% IRRIGATIO 3,000 ML IRRIGATION ONE (06:58)
[2020-02-16] MEDS ORDERED: ROPIVACAINE 0.2%-NS ON-Q PUMP 1,090 MG, EMPTY PAIN BALL 1 EACH MISCELLANE PRN (07:17)
--- NOTE | 2020-02-16 07:17 | P.ANPRN ---
Procedure Note - Anesthesia - Nerve Block Performed Left Adductor Canal Infusion Time Out Performed: Yes ([id number]) Date of Procedure: 02/16/20 Procedure Start Time: 06:33 Procedure Stop Time: 06:43 Location of Patient: PreOp Indication: Acute Post-Operative Pain, Analgesia, Requested by Surgeon Specifically requested for management of pain by : Manuel Brunson Sedation Type: Sedate with meaningful contact maintained Preparation: Sterile Prep, Sterile Dressing Position: Supine Catheter: Indwelling Needle Types: Pajunk Needle Gauge: 18 Ultrasound used to visualize needle placement: Yes Ultrasound used to observe medication spread: Yes Injectate: 0.5% Ropivacaine (see comment for volume) (20 ML) Blood Aspirated: No Pain Paresthesia on Injection Noted: No Resistance on Injection: Normal Image Stored and Saved: Yes Events: Uneventful and Well Tolerated
[2020-02-16] MEDS ORDERED: MAGNESIUM HYDROXIDE 2,400 MG/10 ML CUP PO PRN (09:17)
[2020-02-16] MEDS ORDERED: NA PHOS,M-B/NA PHOS,DI-BA 133 ML ENEMA RECTAL PRN (09:17)
[2020-02-16] MEDS ORDERED: hydrOXYzine pamoate 25 MG CAP PO PRN (09:17)
[2020-02-16] MEDS ORDERED: TEMAZEPAM 15 MG CAP PO PRN (09:17)
[2020-02-16] MEDS ORDERED: traMADol 50 MG TAB PO PRN (09:17)
[2020-02-16] MEDS ORDERED: HYDROcodone/APAP 10-325MG 1 EACH TAB PO PRN (09:17)
[2020-02-16] MEDS ORDERED: HYDROcodone/APAP 5-325MG 1 EACH TAB PO PRN (09:17)
[2020-02-16] MEDS ORDERED: bisacodyL 10 MG SUPP RECTAL PRN (09:17)
[2020-02-16] MEDS ORDERED: diazePAM 5 MG TAB PO PRN (09:17)
[2020-02-16] MEDS ORDERED: ACETAMINOPHEN TAB 325 MG TAB PO PRN (09:17)
[2020-02-16] MEDS ORDERED: ONDANSETRON 4 MG/2 ML VIAL IVP PRN (09:17)
[2020-02-16] MEDS ORDERED: NALOXONE 0.4 MG/ML 1 ML VIAL IV PRN (09:17)
[2020-02-16] MEDS ORDERED: HYDROmorphone 0.5 MG/0.5 ML SYRINGE IVP ONE ×2 (09:20→09:30)
--- NOTE | 2020-02-16 10:00 | XR ---
EXAMINATION TYPE: XR knee limited LT DATE OF EXAM: 02/16/2020 CLINICAL HISTORY: Left knee pain and arthritis status post total knee replacement. TECHNIQUE: Portable AP and crosstable lateral views of the left knee are obtained immediately postop eratively. COMPARISON: None FINDINGS: Metallic hardware from total left knee arthroplasty is seen and appears satisfactory in al ignment and position. There is evidence of recent surgery with diffuse subcutaneous gas and soft tis dinesh swelling noted. IMPRESSION: METALLIC HARDWARE FROM TOTAL LEFT KNEE ARTHROPLASTY IS SATISFACTORY IN ALIGNMENT.
[2020-02-16 10:02] LABS: Glucose,Whole Blood 202 mg/dL (75-99)
--- NOTE | 2020-02-16 11:14 | OP ---
OPERATIVE REPORT DATE OF PROCEDURE: 02/16/2020 SURGEON: Cipriano Woods MORTGAGE SALES MANAGER: Salvador NESBITT. PREOPERATIVE DIAGNOSIS: Left knee osteoarthrosis. POSTOPERATIVE DIAGNOSIS: Left knee osteoarthrosis. OPERATION: Left total knee arthroplasty. ANESTHESIA: Spinal with sedation. ESTIMATED BLOOD LOSS: 100 mL. TOURNIQUET TIME: 50 minutes at 250 mmHg. COMPLICATIONS: None apparent. DRAINS: None. DISPOSITION: Postanesthesia care unit. INDICATIONS: Renato is a 69-year-old male with longstanding history of left knee pain. History and physical examination are consistent with advanced left knee osteoarthrosis. He has been through significant nonoperative management up to this point. Further treatment options were discussed and he has decided to go forward with the left total knee arthroplasty. The risks of procedure were discussed with him in detail. These risks include, but are not limited to risk of infection, nerve damage, bleeding, pain, and a small risk of deep vein thrombosis which could lead to fatal pulmonary embolism. There is also risk of loosening of the implant which could require revision operation. Patient understands these risks. All of his questions were answered to his satisfaction and appropriate informed consent was obtained. DESCRIPTION OF PROCEDURE: Patient identified in the preoperative holding area. Surgical site was marked by both the patient and myself. He was given 2 g of Ancef IV for prophylactic purposes. He was then transferred to the operative suite, where he was placed supine on the operative table. Spinal anesthetic was then administered and dosed per the Anesthesia Department without apparent complication. Examination under anesthesia was then performed. The patient was 2-3 degrees shy of full extension. He had 100 degrees of flexion. The medial collateral ligament, lateral collateral ligament and posterior cruciate ligaments were stable. Tourniquet was then placed high on the left upper thigh well-padded in preparation for surgery. The patient's left lower extremity was then prepped and draped in usual sterile fashion. Standard surgical pause undertaken to ensure that we were operating the correct site and that appropriate preoperative antibiotics were given. All staff were in agreement and we proceeded. The outlines of patella marked with a surgical pen. A planned 12 cm vertical incision centered over the patella was marked surgical pen. Upper leg was then exsanguinated with an Esmarch dressing. The knee was then flexed and tourniquet inflated to 250 mmHg. The total tourniquet time for the procedure was 50 minutes. Incision was then made with a 10 blade scalpel. Dissection was carried down sharply to the overlying fascia. Great care was taken to minimize the skin flaps. The knee was then exposed using a standard medial parapatellar medial parapatellar approach. A small cuff of quadriceps tendon was then left for suturing. He was in a bit of varus preoperatively. A standard medial release was then made. Superficial medial collateral ligament was dissected off the bone around to the posterior aspect of the proximal tibia. The medial meniscus was then excised as well. The lateral meniscus was also released anteriorly. The leg was then externally rotated. The patella was everted. The knee was flexed, the retractors were then placed to protect the collateral ligaments. I then proceeded to remove the infrapatellar fat pad. This was excised sharply tangentially with fibers of the patellar tendon. I then proceeded to remove peripheral osteophytes. This was done with a rongeur. I then proceed with the distal femoral resection. He did have near full extension. A planned 9 mm resection was then done. The femoral canal was then entered midline of the femur, approximately 10 mm anterior to the origin of posterior cruciate ligament. The benny was then advanced down the center of the femur and placed intramedullary. Based on the preoperative radiographs, the angle between the anatomic and mechanical axis of the femur was approximately 4-5 degrees. The valgus angle of the distal femoral cutting guide was then set at 4 degrees for the left knee. This distal femoral cutting guide was then advanced over the intramedullary benny. This was seated firmly against the femur. Then as mentioned planned to take 9 mm off the distal femur. The cutting block was then secured onto the femur with pins. The jig was then removed. The distal femoral cut was made through the slot of the block. The pins were then removed. The distal femoral cutting block was removed. The accuracy of the distal femoral cuts was checked with 2 flat bars. I then proceeded with femoral sizing. Posterior referencing sizing guide was held firmly against the resected distal surface of the femur. The posterior condyles were resting on the posterior plane of the guide. The sizing stylus was then placed onto the anterior femur. The size was measured as a size 9. I then assessed for femoral rotation. The plan was for 3 degrees external rotation. Three degrees of external rotation was placed onto the jig. These holes were then marked. I then confirmed the rotation by 3 separate methods. This was done using the epicondylar axis as well as Whitesides line and posterior referencing. It was deemed that the external rotation was proper. I then went forward placing the femoral cutting block. This was placed over the previously placed pin holes. The Manan wing was then placed on the anterior slots to ensure that we would not notch the anterior femur with the anterior femoral cut. I then propped proceeded with the anterior femoral cut. This was flush with the anterior cortex of the femur. The posterior cuts were then made followed by the anterior chamfer cut, then the posterior chamfer cut. The cutting block was then removed, removed. Throughout the resection, the collateral ligaments were protected with retractors. I then placed a trial size 9 femur. It fit very nice medial-lateral and fit flush with the distal end of the femur. The drill holes were then made. I then proceeded with the tibial cut. I planned for cruciate retaining knee. The guide was placed and set for varus valgus and for slope. I had set for approximate 2 mm resection from the medial tibial plateau which went to the lower side. I was happy with the alignment and amount of resection. The cutting block was then pinned to the proximal tibia. The alignment benny was removed. The proximal tibia was resected with a reciprocating saw. Again this was done with retractors protecting the collateral ligaments as well as the posterior cruciate ligament. I then proceeded to evaluate the flexion and extension gaps. A 10 mm block was then placed. The flexion-extension gaps were equal. I then proceeded to resection of the posterior osteophytes. Very minimal posterior osteophytes. This was done using a curved osteotome. This resected the posterior osteophytes and posterior capsule stripping was done off the posterior aspect of the femur at this time. The osteophytes were then removed. I then proceed to resection of patella. The thickness of patella is measured using the caliper. The thickness was 22 mm. The thickness of the anticipated patellar dome was taken into account. Resection was then performed and confirmed to be equal in 4 quadrants using a caliper using a caliper. Approximately 14 mm of bone remained after resection. A 32 x 8.5 mm standard patellar trial was then placed. The holes were drilled. The trial was then placed. I then proceeded with sizing the tibial plate. A size D tibial plate fit very nicely. I then placed the trial femur the tibial tray and patellar button. A 10 mm trial tibial insert was also placed. The components fit very nicely. He had full extension and flexion. The extension and flexion gaps were equal and stable to both varus and valgus stress. The patella tracked appropriately. Tibial tray rotation was then marked with a Bovie. This was externally rotated properly. I then proceeded with the tibial preparation. First through the femoral holes, removed femoral component. The tibial tray was then set for proper external rotation as well as mediolateral placement onto the tibia. This it was then pinned into place. I then proceeded with punching the keel. I then decided to proceed with cementing of all of our components. The knee was thoroughly irrigated with sterile saline solution via pulse lavage. The lateral geniculate artery was identified and cauterized. All blood was removed from the bone of the tibia femur and patella with pulse lavage. I then proceed with cementing. Packs of antibiotic bone cement prepared on the back on the back table by the surgical asst. I then proceed with cementing the tibia first. The cement was impacted in the keel as well as deeply seated in the bone. A second coat of cement was then placed. The tibia was then impacted into place. Excess cement was removed with Jp's and jokers. I then proceed with cementing of the femoral component. The femoral component was also cemented using standard technique. Excess cement was removed. A 10 mm trial insert was then placed into the knee. Brought into full extension with a constant axial load placed until the cement had hardened. Patellar component was then cemented. This held firmly with a compressive device until the cement had dried. When the cement had dried, the knee was taken out of extension. All excess cement was removed from around the prosthesis. I then trialed the knee with a 10 mm insert. The flexion-extension gaps were appropriate. I then trialed the knee was stable. Came into full extension. I decided to go for the 10 mm cross-linked cruciate-retaining tibial insert. Polyethylene was then placed on the tibial tray and locked into place. The knee was then reduced. The knee was again further irrigated with sterile saline solution with antibiotic added. The tourniquet was then deflated. The total tourniquet time for the procedure was 50 minutes at 250 mmHg. Final components were Thalia Persona size 9 cruciate-retaining femoral component size D tibial tray, a 10 mm medial congruent cruciate-retaining polyethylene insert and a 32 x 8.5 mm patella. I then proceeded with closure. Again, the knee was thoroughly irrigated. The quadriceps tendon and the medial retinaculum were reapproximated with #2 Ethibond suture. The extensor mechanism was then closed with a running #2 Quill suture. Subcutaneous tissues were closed with 2-0 Vicryl interrupted suture. The skin was closed with a running 3-0 Quill suture. A Dermabond was applied to the incision. Sterile compressive dressing was then applied. All sponge and needle counts were deemed correct prior to closure. The patient tolerated the procedure without apparent complication. He was transferred to recovery room in stable condition. MMODL / IJN: [id number] /
[2020-02-16 11:26] LABS: Glucose,Whole Blood 280 mg/dL (75-99)
[2020-02-16] MEDS: amLODIPine 5 MG TAB PO SCH (12:39)
[2020-02-16] MEDS: INSULIN ASPART (NovoLOG) 100 UNIT/ML VIAL SQ SCH ×3 (12:40→21:07)
[2020-02-16] MEDS ORDERED: METOCLOPRAMIDE 5 MG/ML 2 ML VIAL IVP STA (14:09)
--- NOTE | 2020-02-16 14:13 | P.CONS ---
History of Present Illness - Reason for Consult Consult date: 02/16/20 Medical management - Chief Complaint Left knee pain - History of Present Illness This is a 69-year-old male with past medical history noted below significant for severe osteoarthritis of the left knee that was admitted to the hospital for elective total left knee arthroplasty. Patient is postoperative day #0. I was asked to see him for medical management. Patient reports feeling fairly well. He was a little bit nauseous prior to my evaluation but no vomiting. He denies any abdominal pain. He said that he did not take any of his home medications this morning. His blood pressure was not well controlled. He does not have any specific concerns or complaints otherwise. Review of Systems Review of system: 14 points review of systems were obtained and were negative except to what were mentioned in the HPI. Past Medical History Past Medical History: Cancer, Diabetes Mellitus, Hyperlipidemia, Hypertension, Sleep Apnea/CPAP/BIPAP Additional Past Medical History / Comment(s): hx. melanoma-last surg. 8 yrs. ago, kidney stones, hx. heart murmur History of Any Multi-Drug Resistant Organisms: None Reported Past Surgical History: Hernia Repair, Orthopedic Surgery Additional Past Surgical History / Comment(s): melanoma with three surgeries, surg. for sleep apnea, trigger finger repair, colonoscopy Past Anesthesia/Blood Transfusion Reactions: Postoperative Nausea & Vomiting (PONV) Past Psychological History: No Psychological Hx Reported Smoking Status: Never smoker Past Alcohol Use History: Rare Past Drug Use History: Marijuana Additional Drug Use History / Comment(s): rare use of marijuana - Past Family History Father Family Medical History: Diabetes Mellitus Mother Family Medical History: Diabetes Mellitus Medications and Allergies Home Medications Medication Instructions Recorded Confirmed Type Aspirin [Stamping Ground Aspirin EC] 81 mg PO DAILY 07/04/18 02/16/20 History Montelukast [Singulair] 10 mg PO DAILY 07/04/18 02/16/20 History Pravastatin Sodium [Pravachol] 80 mg PO DAILY 07/04/18 02/16/20 History Valsartan [Diovan] 320 mg PO DAILY 07/04/18 02/16/20 History metFORMIN HCL [Glucophage] 1,000 mg PO BID 07/04/18 02/16/20 History Retinavites 1 tab PO DAILY 02/08/20 02/16/20 History amLODIPine [Norvasc] 5 mg PO DAILY 02/08/20 02/16/20 History Allergies Allergy/AdvReac Type Severity Reaction Status Date / Time Iodinated Contrast Media Allergy Anaphylaxis Verified 02/16/20 06:00 [Iodinated Contrast- Oral and IV Dye] Physical Exam Vitals: Vital Signs Temp Pulse Pulse Resp BP BP Pulse Ox 02/16/20 12:15 100 154/101 02/16/20 12:00 95 131/89 02/16/20 11:45 106 H 158/96 02/16/20 11:30 83 134/88 02/16/20 11:15 87 119/81 02/16/20 11:14 97.6 F 02/16/20 11:00 85 143/90 02/16/20 10:45 68 164/89 02/16/20 10:30 97.6 F 77 18 141/92 97 02/16/20 10:09 77 16 142/88 93 L 02/16/20 09:47 75 14 140/86 97 02/16/20 09:32 77 16 160/89 97 02/16/20 09:17 71 18 150/91 97 02/16/20 09:02 97.1 F L 80 16 123/81 96 02/16/20 06:42 73 16 133/85 96 02/16/20 06:24 97.8 F 80 16 140/84 95 Intake and Output 02/15/20 02/16/20 02/16/20 22:59 06:59 14:59 Intake Total 1001 400 Output Total 100 Balance 1001 300 Intake: IV 1001 400 Output: Estimated Blood Loss 100 Other: Weight 124.2 kg 124.2 kg General: The patient is awake and alert, in no distress Eye: there is normal conjunctiva bilaterally. Neck: The neck is supple, there is no JVD. Cardiovascular: Normal S1-S2, no S3-S4, no murmurs. Respiratory: Lungs clear to auscultation bilaterally Gastrointestinal: Abdomen is soft, nontender Musculoskeletal: There is no pedal edema. Neurological:. Speech is normal. Skin: Skin is warm and dry Results Labs: Abnormal Lab Results - Last 24 Hours (Table) 02/16/20 02/16/20 02/16/20 Range/Units 06:12 10:00 11:24 POC Glucose (mg/dL) 147 H 202 H 280 H (75-99) mg/dL Assessment and Plan Assessment: 1. Postoperative day #0 status post total left hip arthroplasty, postoperative care per orthopedic surgery. Pain control as directed per orthopedic. 2. Essential hypertension, blood pressure not well controlled. I would resume his home medication and continue to monitor closely 3. Type 2 diabetes: Hold metformin and continue sliding scale insulin 4. Hyperlipidemia, continue home dose of Pravachol 5. DVT prophylaxis currently with aspirin twice daily per orthopedic protocol 6. Physical debility, awaiting PT/OT evaluation Today, I reviewed his medication list. I would order CBC and BMP for the morning. I would continue to follow up on the patient closely with you. Thank you very much for the consultation.
[2020-02-16 16:58] LABS: Glucose,Whole Blood 214 mg/dL (75-99)
[2020-02-16 20:42] LABS: Glucose,Whole Blood 249 mg/dL (75-99)
[2020-02-16] MEDS ORDERED: SENNOSIDES-DOCUSATE SODIUM 1 EACH TAB PO SCH (21:00)
[2020-02-16] MEDS: ASPIRIN 81 MG PO SCH (21:07)
[2020-02-17] MEDS: LACTATED RINGERS 1,000 ML IV SCH ×3 (02:26→12:17)
[2020-02-17 03:13] VITALS: RESP 16
--- NOTE | 2020-02-17 06:18 | P.PN ---
Progress Note - Text Progress Note Date: 02/17/20 Patient was seen at bedside at 545 AM. Patient is postop day from left total knee replacement with adductor canal catheter placed for pain . Ropivacaine 0.2% infusion running at 8 ml per hour. VAS score is 0. Patient denies side effects. Lower extremity sensation and motor function is intact. Patient has ambulated. Dressing clean dry and intact over catheter site
[2020-02-17 06:54] LABS: Glucose,Whole Blood 150 mg/dL (75-99)
[2020-02-17 07:20] LABS: Basophils % (A) 0 %; Eosinophils # (A) 0.1 k/uL (0-0.7); Eosinophils % (A) 0 %; HCT 38.5 % (39.0-53.0); HGB 13.1 gm/dL (13.0-17.5); Lymphocytes # (A) 1.5 k/uL (1.0-4.8); Lymphocytes % (A) 11 %; MCH 30.4 pg (25.0-35.0); MCV 89.5 fL (80.0-100.0); Mean Platelet Volume 7.7; Monocytes # (A) 0.9 k/uL (0-1.0); Monocytes % (A) 7 %; Neutrophils # (A) 11.4 k/uL (1.3-7.7); Neutrophils % (A) 82 %; Platelet Count 190 k/uL (150-450); RDW 13.3 % (11.5-15.5)
[2020-02-17] MEDS: INSULIN ASPART (NovoLOG) 100 UNIT/ML VIAL SQ SCH ×2 (07:22→12:17)
[2020-02-17] MEDS: PRAVASTATIN SODIUM 80 MG TAB PO SCH (07:29)
[2020-02-17] MEDS: amLODIPine 5 MG TAB PO SCH (07:29)
[2020-02-17] MEDS: ASPIRIN 81 MG PO SCH (07:29)
[2020-02-17 07:37] VITALS: BP 132/82; PULSE 80; TEMP 98
[2020-02-17] MEDS ORDERED: MONTELUKAST 10 MG TAB PO SCH (09:00)
[2020-02-17] MEDS ORDERED: VALSARTAN 160 MG TAB PO SCH (09:00)
--- NOTE | 2020-02-17 10:06 | P.PN ---
Subjective Progress Note Date: 02/17/20 Patient is doing well today. He was up in the chair when I saw her. He worked with physical therapy this morning with no difficulty. Objective - Vital Signs Vital signs: Vital Signs Temp 98 F 02/17/20 07:00 Pulse 80 02/17/20 07:00 Resp 16 02/17/20 07:00 BP 132/82 02/17/20 07:00 Pulse Ox 92 L 02/17/20 07:00 Intake & Output 02/16/20 02/17/20 02/17/20 18:59 06:59 18:59 Intake Total 400 700 Output Total 500 Balance -100 700 Weight 124.2 kg Intake: IV 400 Intake, IV Titration 400 Amount Lactated Ringers 1,000 ml 400 @ 100 mls/hr IV .Q10H JADON Rx#:[id number] Oral 300 Output: Urine 400 Estimated Blood Loss 100 Other: Voiding Method Urinal Toilet Urinal # Voids 2 1 - Exam General: The patient is awake and alert, in no distress Eye: there is normal conjunctiva bilaterally. Neck: The neck is supple, there is no JVD. Cardiovascular: Normal S1-S2, no S3-S4, no murmurs. Respiratory: Lungs clear to auscultation bilaterally Gastrointestinal: Abdomen is soft, nontender Musculoskeletal: There is +1 pedal edema on the left Neurological:. Speech is normal. Skin: Skin is warm and dry - Labs CBC & Chem 7: 02/17/20 06:42 Labs: Abnormal Lab Results - Last 24 Hours (Table) 02/16/20 02/16/20 02/16/20 Range/Units 11:24 16:57 20:41 WBC (3.8-10.6) k/uL Hct (39.0-53.0) % Neutrophils # (1.3-7.7) k/uL POC Glucose (mg/dL) 280 H 214 H 249 H (75-99) mg/dL 02/17/20 02/17/20 Range/Units 06:42 06:52 WBC 14.0 H (3.8-10.6) k/uL Hct 38.5 L (39.0-53.0) % Neutrophils # 11.4 H (1.3-7.7) k/uL POC Glucose (mg/dL) 150 H (75-99) mg/dL Assessment and Plan Assessment: 1. Postoperative day #1 status post total left hip arthroplasty, postoperative care per orthopedic surgery. Pain control as directed per orthopedic. 2. Essential hypertension, blood pressure well controlled. 3. Type 2 diabetes: Hold metformin and continue sliding scale insulin 4. Hyperlipidemia, continue home dose of Pravachol 5. DVT prophylaxis currently with aspirin twice daily per orthopedic protocol 6. Physical debility, PT/OT evaluation Discharge planning per primary team
[2020-02-17 11:21] LABS: Anion Gap 9.8 mmol/L (4.00-12.00); BUN/Creat Ratio 17.69 Ratio (12.00-20.00); Calcium 9.2 mg/dL (8.7-10.3); Carbon Dioxide 27.2 mmol/L (21.6-31.8); Non-African American GFR(CKD) 56.1 (60.0-200.0); Potassium 4.2 mmol/L (3.5-5.5)
[2020-02-17] MEDS ORDERED: MULTIVITAMINS, THERA 1 EACH TAB PO SCH (12:00)
--- NOTE | 2020-02-17 12:35 | P.DS ---
Providers Expected date of discharge: 02/17/20 Attending physician: Manuel Brunson Consults: 02/16/20 09:17 Consult Physician Routine Consulting Provider: Julian Gonzales Consult Reason/Comments: post op medical management Do you want consulting provider notified?: Yes Primary care physician: Sary Paz - Discharge Diagnosis(es) (1) Osteoarthritis of left knee Patient was admitted to the OR on 02/16/2020 to undergo a left total knee arthroplasty. He had failed conservative measures as an outpatient and desired to proceed with elective surgery after given informed consent. He underwent the above procedure which he tolerated well without complication. Postoperative hospital course has remained without complication. On day of discharge he is afebrile, vital signs stable, labs within acceptable ranges, tolerating by mouth meds and diet, voiding without difficulty, positive flatus, denies abdominal pain or calf pain, pain is controlled on oral pain medication and has no new complaints. Wound is benign, neurovascular status is intact, calf is soft and nontender, abdomen soft and nontender. Review of systems is negative for numbness, tingling, fever, chills, chest pain, shortness of breath, nausea, vomiting, dizziness, headaches, slurred speech or other. Current Visit: Yes Status: Acute Priority: Medium Patient Condition at Discharge: Good Plan - Discharge Summary Discharge Rx Participant: Yes New Discharge Prescriptions: New Aspirin [Adult Low Dose Aspirin EC] 81 mg PO BID #60 tablet. HYDROcodone/APAP 7.5-325MG [Ignacio 7.5-325] 1 - 2 each PO Q6HR PRN #56 tab PRN Reason: Pain No Action Pravastatin Sodium [Pravachol] 80 mg PO DAILY Montelukast [Singulair] 10 mg PO DAILY Aspirin [[place] Aspirin EC] 81 mg PO DAILY metFORMIN HCL [Glucophage] 1,000 mg PO BID Valsartan [Diovan] 320 mg PO DAILY amLODIPine [Norvasc] 5 mg PO DAILY Retinavites 1 tab PO DAILY Discharge Medication List Aspirin [[place] Aspirin EC] 81 mg PO DAILY 07/04/18 [History] Montelukast [Singulair] 10 mg PO DAILY 07/04/18 [History] Pravastatin Sodium [Pravachol] 80 mg PO DAILY 07/04/18 [History] Valsartan [Diovan] 320 mg PO DAILY 07/04/18 [History] metFORMIN HCL [Glucophage] 1,000 mg PO BID 07/04/18 [History] Retinavites 1 tab PO DAILY 02/08/20 [History] amLODIPine [Norvasc] 5 mg PO DAILY 02/08/20 [History] Aspirin [Adult Low Dose Aspirin EC] 81 mg PO BID #60 tablet. 02/17/20 [Rx] HYDROcodone/APAP 7.5-325MG [Ignacio 7.5-325] 1 - 2 each PO Q6HR PRN #56 tab 02/17/20 [Rx] Follow up Appointment(s)/Referral(s): [facility], [NON-STAFF] - ([facility] will call to set up visits. Your first visit should be within 24 hours of discharge. ) Sary Paz MD [Primary Care Provider] - 03/13/20 11:20 am Manuel Brunson MD [STAFF PHYSICIAN] - 02/27/20 9:30 am Patient Instructions/Handouts: *Surgery [facility] - On-Q Pain Pump Discharge Instructions, Joint Replacement Surgery (DC), Knee Replacement (DC) Activity/Diet/Wound Care/Special Instructions: Keep wound clean and dry Take meds as directed Follow-up with Dr. Brunson in office Weight bear as tolerated May shower in 3 days if no bleeding Discharge Disposition: HOME WITH HOME HEALTH SERVICES
== END 2020-02-17 13:07 | disposition home health service (06) ==
LOC: OR 05:34 → 4SSUR 08:58 → OR 02-17 13:07
PROVIDERS: ATTEND Orthopaedic Surgery Sports Medicine
DX: M17.12 Unilateral primary osteoarthritis, left knee (principal); M25.762 Osteophyte, left knee; I10 Essential (primary) hypertension; E78.5 Hyperlipidemia, unspecified; G47.33 Obstructive sleep apnea (adult) (pediatric); E11.9 Type 2 diabetes mellitus without complications; Z91.041 Radiographic dye allergy status; Z87.442 Personal history of urinary calculi; Z85.820 Personal history of malignant melanoma of skin; Z79.84 Long term (current) use of oral hypoglycemic drugs; Z79.82 Long term (current) use of aspirin; Z79.899 Other long term (current) drug therapy; Z99.89 Dependence on other enabling machines and devices; Z82.49 Family history of ischemic heart disease and other diseases of the circulatory system; Z83.3 Family history of diabetes mellitus; Z98.890 Other specified postprocedural states
CPT/HCPCS: 97116; 97110; 97161; 64448; 76942; 88305; 80048; 85025; 88311; 73560; 27447; C1776; C1713; J2250; J0171; J1100; J2765; J0690 ×3; J2405; J3010; J1885; J2795 ×2; J2370; J2704; J0735; J1170

== ENCOUNTER 2020-03-26 11:47 | Emergency (ER) | payer MEDICARE ==
[2020-03-26 11:56] VITALS: RESP 18
[2020-03-26] MEDS ORDERED: SODIUM CHLORIDE 0.9% 1,000 ML IV ONE (12:22)
--- NOTE | 2020-03-26 12:23 | ED ---
General Adult HPI - General Chief complaint: Upper Respiratory Infection Stated complaint: Covid symptoms Time Seen by Provider: 03/26/20 12:04 Source: patient, RN notes reviewed Mode of arrival: ambulatory Limitations: no limitations - History of Present Illness Initial comments: 69-year-old male presents emergency Department with chief complaint of cough congestion diarrhea, dysuria. Patient states that he had knee surgery over a month ago. Patient states that his knee has been healing well but states her last few days he has just not felt well. Patient states that he was seen by his PCP and sent here to rule out covid. Patient denies any chest pain or shortness of breath. He's had night sweats, low-grade temps. Patient states he's had mi ld diarrhea no hematochezia. Patient denies any flank pain, current back pain, neck pain or neck stiffness. - Related Data Home Medications Medication Instructions Recorded Confirmed Aspirin [[place] Aspirin EC] 81 mg PO DAILY 07/04/18 03/26/20 Montelukast [Singulair] 10 mg PO DAILY 07/04/18 03/26/20 metFORMIN HCL [Glucophage] 1,000 mg PO BID 07/04/18 03/26/20 Retinavites 1 tab PO DAILY 02/08/20 03/26/20 Losartan Potassium [Cozaar] 100 mg PO DAILY 03/26/20 03/26/20 Pravastatin Sodium [Pravachol] 80 mg PO DAILY 03/26/20 03/26/20 amLODIPine [Norvasc] 10 mg PO DAILY 03/26/20 03/26/20 Allergies Allergy/AdvReac Type Severity Reaction Status Date / Time Iodinated Contrast Media Allergy Anaphylaxis Verified 03/26/20 13:32 [Iodinated Contrast- Oral and IV Dye] Review of Systems ROS Statement: Those systems with pertinent positive or pertinent negative responses have been documented in the HPI. ROS Other: All systems not noted in ROS Statement are negative. Past Medical History Past Medical History: Cancer, Diabetes Mellitus, Hyperlipidemia, Hypertension, Sleep Apnea/CPAP/BIPAP Additional Past Medical History / Comment(s): hx. melanoma-last surg. 8 yrs. ago , kidney stones, hx. heart murmur History of Any Multi-Drug Resistant Organisms: None Reported Past Surgical History: Hernia Repair, Orthopedic Surgery Additional Past Surgical History / Comment(s): melanoma with three surgeries, surg. for sleep apnea, trigger finger repair, colonoscopy Past Anesthesia/Blood Transfusion Reactions: Postoperative Nausea & Vomiting (PONV) Past Psychological History: No Psychological Hx Reported Smoking Status: Never smoker Past Alcohol Use History: Rare Past Drug Use History: Marijuana - Past Family History Father Family Medical History: Diabetes Mellitus Mother Family Medical History: Diabetes Mellitus General Exam Limitations: no limitations General appearance: alert, in no apparent distress Head exam: Present: atraumatic, normocephalic, normal inspection Eye exam: Present: normal appearance, PERRL, EOMI. Absent: scleral icterus, conjunctival injection, periorbital swelling ENT exam: Present: normal exam, normal oropharynx, mucous membranes moist, TM's normal bilaterally Respiratory exam: Present: normal lung sounds bilaterally. Absent: respiratory distress, wheezes, rales, rhonchi, stridor Cardiovascular Exam: Present: normal rhythm, tachycardia, normal heart sounds. Absent: systolic murmur, diastolic murmur, rubs, gallop, clicks GI/Abdominal exam: Present: soft, normal bowel sounds. Absent: distended, tenderness, guarding, rebound, rigid Extremities exam: Present: other (Left knee there is mild swelling, healed incision noted, patient has good range of motion no erythema no increased warmth) Skin exam: Present: warm, dry, intact, normal color. Absent: rash Course Vital Signs 03/26/20 03/26/20 03/26/20 11:53 12:48 13:38 Temperature 99.1 F 102.8 F H 101.1 F H Pulse Rate 116 H 96 Respiratory 18 18 Rate Blood Pressure 146/80 124/75 O2 Sat by Pulse 97 92 L Oximetry Medical Decision Making - Medical Decision Making X-ray does not reveal any major changes, patient is covid 19 positive. Patient labs do not reveal any significant abnormality urinalysis unremarkable. Patient's vitals have improved. He has no shortness breath currently. Patient will be discharged advised take vitamin C vitamin D and zinc he'll follow-up with PCP and return for any worsening symptoms. - Lab Data Result diagrams: 03/26/20 12:22 03/26/20 12:22 Lab Results 03/26/20 03/26/20 03/26/20 Range/Units 12:22 12:22 12:22 WBC 6.2 (3.8-10.6) k/uL RBC 4.69 (4.30-5.90) m/uL Hgb 13.7 (13.0-17.5) gm/dL Hct 40.9 (39.0-53.0) % MCV 87.3 (80.0-100.0) fL MCH 29.3 (25.0-35.0) pg MCHC 33.6 (31.0-37.0) g/dL RDW 13.8 (11.5-15.5) % Plt Count 169 (150-450) k/uL MPV 7.8 Neutrophils % 72 % Lymphocytes % 17 % Monocytes % 8 % Eosinophils % 1 % Basophils % 1 % Neutrophils # 4.4 (1.3-7.7) k/uL Lymphocytes # 1.1 (1.0-4.8) k/uL Monocytes # 0.5 (0-1.0) k/uL Eosinophils # 0.0 (0-0.7) k/uL Basophils # 0.1 (0-0.2) k/uL Sodium 135 L (137-145) mmol/L Potassium 3.8 (3.5-5.1) mmol/L Chloride 101 (98-107) mmol/L Carbon Dioxide 26 (22-30) mmol/L Anion Gap 8 mmol/L BUN 20 (9-20) mg/dL Creatinine 1.37 H (0.66-1.25) mg/dL Est GFR (CKD-EPI)AfAm 61 (>60 ml/min/1.73 sqM) Est GFR (CKD-EPI)NonAf 53 (>60 ml/min/1.73 sqM) Glucose 172 H (74-99) mg/dL Plasma Lactic Acid Renny (0.7-2.0) mmol/L Calcium 9.4 (8.4-10.2) mg/dL Total Bilirubin 0.6 (0.2-1.3) mg/dL AST 27 (17-59) U/L ALT 24 (4-49) U/L Alkaline Phosphatase 59 (38-126) U/L Troponin I (0.000-0.034) ng/mL C-Reactive Protein 31.4 H (<10.0) mg/L Total Protein 7.3 (6.3-8.2) g/dL Albumin 4.2 (3.5-5.0) g/dL Amylase 50 (30-110) U/L Lipase 127 (23-300) U/L Urine Color Yellow Urine Appearance Clear (Clear) Urine pH 6.0 (5.0-8.0) Ur Specific [place] 1.019 (1.001-1.035) Urine Protein 1+ H (Negative) Urine Glucose (UA) Negative (Negative) Urine Ketones Negative (Negative) Urine Blood Negative (Negative) Urine Nitrite Negative (Negative) Urine Bilirubin Negative (Negative) Urine Urobilinogen <2.0 (<2.0) mg/dL Ur Leukocyte Esterase Negative (Negative) Urine RBC 1 (0-5) /hpf Urine WBC <1 (0-5) /hpf Urine Mucus Rare H (None) /hpf Coronavirus (PCR) (Not Detectd) 03/26/20 03/26/20 03/26/20 Range/Units 12:22 12:22 12:22 WBC (3.8-10.6) k/uL RBC (4.30-5.90) m/uL Hgb (13.0-17.5) gm/dL Hct (39.0-53.0) % MCV (80.0-100.0) fL MCH (25.0-35.0) pg MCHC (31.0-37.0) g/dL RDW (11.5-15.5) % Plt Count (150-450) k/uL MPV Neutrophils % % Lymphocytes % % Monocytes % % Eosinophils % % Basophils % % Neutrophils # (1.3-7.7) k/uL Lymphocytes # (1.0-4.8) k/uL Monocytes # (0-1.0) k/uL Eosinophils # (0-0.7) k/uL Basophils # (0-0.2) k/uL Sodium (137-145) mmol/L Potassium (3.5-5.1) mmol/L Chloride (98-107) mmol/L Carbon Dioxide (22-30) mmol/L Anion Gap mmol/L BUN (9-20) mg/dL Creatinine (0.66-1.25) mg/dL Est GFR (CKD-EPI)AfAm (>60 ml/min/1.73 sqM) Est GFR (CKD-EPI)NonAf (>60 ml/min/1.73 sqM) Glucose (74-99) mg/dL Plasma Lactic Acid Renny 1.2 (0.7-2.0) mmol/L Calcium (8.4-10.2) mg/dL Total Bilirubin (0.2-1.3) mg/dL AST (17-59) U/L ALT (4-49) U/L Alkaline Phosphatase (38-126) U/L Troponin I <0.012 (0.000-0.034) ng/mL C-Reactive Protein (<10.0) mg/L Total Protein (6.3-8.2) g/dL Albumin (3.5-5.0) g/dL Amylase (30-110) U/L Lipase (23-300) U/L Urine Color Urine Appearance (Clear) Urine pH (5.0-8.0) Ur Specific [place] (1.001-1.035) Urine Protein (Negative) Urine Glucose (UA) (Negative) Urine Ketones (Negative) Urine Blood (Negative) Urine Nitrite (Negative) Urine Bilirubin (Negative) Urine Urobilinogen (<2.0) mg/dL Ur Leukocyte Esterase (Negative) Urine RBC (0-5) /hpf Urine WBC (0-5) /hpf Urine Mucus (None) /hpf Coronavirus (PCR) Detected A (Not Detectd) Disposition Clinical Impression: COVID-19 Disposition: HOME SELF-CARE Condition: Stable Instructions (If sedation given, give patient instructions): Upper Respiratory Infection (ED) Additional Instructions: Please return to the Emergency Department if symptoms worsen or any other concerns. Is patient prescribed a controlled substance at d/c from ED?: No Referrals: Sary Paz MD [Primary Care Provider] - 1-2 days Time of Disposition: 13:53
[2020-03-26 12:34] LABS: Appearance,Urine Clear (Clear); Bilirubin,Urine Negative (Negative); Blood,Urine Negative (Negative); Color,Urine Yellow; Glucose,Urine (UA) Negative (Negative); Ketones,Urine Negative (Negative); Leukocyte Esterase,Urine Negative (Negative); Mucus,Urine Rare /hpf; Nitrite,Urine Negative (Negative); Protein,Urine 1+ (Negative); RBC,Urine 1 /hpf (0-5); Specific Gravity,Urine 1.019 (1.001-1.035); Urobilinogen,Urine <2.0 mg/dL (<2.0); WBC,Urine <1 /hpf (0-5)
[2020-03-26 12:46] LABS: Albumin 4.2 g/dL (3.5-5.0); Basophils # (A) 0.1 k/uL (0-0.2); Basophils % (A) 1 %; C Reactive Protein 31.4 mg/L (<10.0); Calcium 9.4 mg/dL (8.4-10.2); Eosinophils % (A) 1 %; HCT 40.9 % (39.0-53.0); HGB 13.7 gm/dL (13.0-17.5); Lymphocytes # (A) 1.1 k/uL (1.0-4.8); Lymphocytes % (A) 17 %; MCH 29.3 pg (25.0-35.0); MCHC 33.6 g/dL (31.0-37.0); MCV 87.3 fL (80.0-100.0); Mean Platelet Volume 7.8; Monocytes # (A) 0.5 k/uL (0-1.0); Monocytes % (A) 8 %; Neutrophils # (A) 4.4 k/uL (1.3-7.7); Neutrophils % (A) 72 %; Platelet Count 169 k/uL (150-450); Potassium 3.8 mmol/L (3.5-5.1); RBC 4.69 m/uL (4.30-5.90); RDW 13.8 % (11.5-15.5); Total Bilirubin 0.6 mg/dL (0.2-1.3); Total Protein 7.3 g/dL (6.3-8.2); WBC 6.2 k/uL (3.8-10.6)
--- NOTE | 2020-03-26 12:46 | XR ---
EXAMINATION TYPE: XR chest 2V DATE OF EXAM: 03/26/2020 COMPARISON: None INDICATION: Cough TECHNIQUE: Frontal and lateral views of the chest are obtained. FINDINGS: The heart size is normal. The pulmonary vasculature is normal. Very minimal nonspecific infiltrate may be present. Consider atypical pneumonia. Minimal subsegmental atelectasis could be considered.. IMPRESSION: 1. Minimal increased lung markings are nonspecific. Consider atypical pneumonia and atelectasis withi n the differential
[2020-03-26] MEDS ORDERED: ACETAMINOPHEN TAB 500 MG TAB PO STA (12:48)
[2020-03-26 13:40] VITALS: BP 124/75; PULSE 96; TEMP 101.1
== END 2020-03-26 14:18 | disposition home or self-care (01) ==
LOC: EC 11:47
DX: U07.1 COVID-19 (principal); E11.9 Type 2 diabetes mellitus without complications; I10 Essential (primary) hypertension; G47.30 Sleep apnea, unspecified; E78.5 Hyperlipidemia, unspecified; Z79.899 Other long term (current) drug therapy; Z79.82 Long term (current) use of aspirin; Z79.84 Long term (current) use of oral hypoglycemic drugs; Z91.041 Radiographic dye allergy status; Z85.820 Personal history of malignant melanoma of skin; Z87.442 Personal history of urinary calculi; Z99.89 Dependence on other enabling machines and devices
CPT/HCPCS: 36415; 71046; 80053; 81001; 82150; 83605; 83690; 84484; 85025; 86140; 87635; 96360; 99283

== ENCOUNTER → 2020-11-12 | Outpatient (CLI) | payer MEDICARE ==
--- NOTE | 2020-11-12 11:27 | US ---
EXAMINATION TYPE: US carotid duplex BILAT DATE OF EXAM: 11/12/2020 COMPARISON: NONE CLINICAL HISTORY: R09.89 CAROTID BRUIT. BRUIT EXAM MEASUREMENTS: RIGHT: Peak Systolic Velocity (PSV) cm/sec ----- Right CCA: 88.1 ----- Right ICA: 83.7 ----- Right ECA: 101.1 ICA/CCA ratio: 1.0 RIGHT: End Diastole cm/sec ----- Right CCA: 18.3 ----- Right ICA: 29.9 ----- Right ECA: 16.9 LEFT: Peak Systolic Velocity (PSV) cm/sec ----- Left CCA: 136.1 ----- Left ICA: 99.0 ----- Left ECA: 145.4 ICA/CCA ratio: .7 LEFT: End Diastole cm/sec ----- Left CCA: 40.9 ----- Left ICA: 29.3 ----- Left ECA: 20.0 VERTEBRALS (direction of flow): Right Vertebral: Antegrade Left Vertebral: Antegrade Rhythm: Normal No significant stenosis seen IMPRESSION: No sonographic evidence for hemodynamically significant stenosis of the bilateral carotid arteries. Criteria for Assigning % of Stenosis / Diameter reduction (Estimation based on the indirect measurements of the internal carotid artery velocities (ICA PSV). 1. Normal (no stenosis)=ICA PSV < 125 cm/s: ratio < 2.0: ICA EDV<40 cm/s. 2. Less than 50% stenosis=ICA PSV < 125 cm/s: ratio < 2.0: ICA EDV<40 cm/s. 3. 50 to 69% stenosis=ICA PSV of 125 to 230 cm/s: ration 2.0 ? 4.0: ICA EDV 40-100 cm/s. 4. Greater than 70% stenosis to near occlusion= ICA PSV > 230 cm/s: ratio > 4.0: ICA EDV > 100 cm/s. 5. Near occlusion= ICA PSV velocities may be low or undetectable: variable ratio and ICA EDV. 6. Total occlusion=unable to detect flow.
== END | disposition home or self-care (01) ==
LOC: RADUSWWP 10:45
PROVIDERS: ATTEND Family Medicine
DX: R09.89 Other specified symptoms and signs involving the circulatory and respiratory systems (principal)
CPT/HCPCS: 93880

== ENCOUNTER → 2021-04-05 | Outpatient (CLI) | payer MEDICARE ==
--- NOTE | 2021-04-05 16:08 | US ---
EXAMINATION TYPE: US kidneys/renal and bladder DATE OF EXAM: 04/05/2021 COMPARISON: NONE CLINICAL HISTORY: N28.9 CKD. Abnormal labs, no symptoms EXAM MEASUREMENTS: Right Kidney: 10.4 x 5.4 x 5.3 cm Left Kidney: 11.8 x 4.5 x 5.3 cm Right Kidney: No hydronephrosis or masses seen Left Kidney: No hydronephrosis or masses seen Bladder: Anechoic. Wall = 4.0 mm Left jet seen Prominent prostate seen. IMPRESSION: 1. Prominent prostate. 2. Renal ultrasound is otherwise unremarkable
== END | disposition home or self-care (01) ==
LOC: RADUSWWP 14:06
PROVIDERS: ATTEND Family Medicine
DX: N18.9 Chronic kidney disease, unspecified (principal)
CPT/HCPCS: 76770

== ENCOUNTER → 2021-12-03 | Outpatient (CLI) | payer MEDICARE ==
[~2021-12-03] MED LIST changes: -ACETAMINOPHEN TAB 500 MG TAB PO ONE; +DOBUTamine DRIP for NUC MED 500 MG in DEXTROSE/WATER 1 250ML.BAG IV PRN; +DOBUTamine DRIP for NUC MED 500 MG/250 ML BAG IV ONE; -GABAPENTIN 300 MG CAP PO ONE; -MELOXICAM 7.5 MG TAB PO ONE; -ONDANSETRON 4 MG/2 ML VIAL IVP ONE; -TRANEXAMIC ACID 1,000 MG in SODIUM CHLORIDE 0.9% 100 ML IVPB ONE; -ceFAZolin 3 GM in SODIUM CHLORIDE 0.9% 100 ML IVPB ONE
--- NOTE | 2021-12-03 11:58 | CA ---
Dobutamine Stress Echocardiogram Report Renato Brewer Age: 71 Gender: M : 1950 Exam Date: 12/03/2021 09:19 Exam Location: [facility] Ordering Physician: Wilber Lorenz MD Referring Physician: WILBER LORENZ,, Carpenter'S Assistant: Jamin Michelle Technologist: Ht (in): 71 Wt (lb): 270 Procedure CPT: Indication: R0602 ICD-9 Codes: Rhythm: Patient History: DIFFICULTY IN BREATHING, HTN, DIABETES, ELEVATED CHOLESTEROL LEVELS, FAMILY HX OF HEART DISEASE Cardiac Medications: ASA, RETINAVITES, METFORMIN, LOSARTAN, TAMSULOSIN, PRAVASTATIN, AMLODIPINE, JANUVIA Medications in past 24 hours: Contrast: Total Dose (mL): Stress Results Protocol: Peak Dose (???g/kg/min): Duration (min:sec): Atropine:(mg) Target HR: 128 Double Product: [id number] Resting HR: 74 Resting BP: 130 / 91 Peak HR: 127 Peak BP: 143 / 58 Max Predicted HR: 150 85 % Max Predicted HR Stress Summary: BP Response: Reason for Termination: Cardiac Symptoms: ECG Analysis Resting EKG: Normal sinus rhythm normal axis normal intervals Stress EKG: Patient was given intravenous dobutamine or a period of 5 and half minutes achieving 81% of predicted maximal heart rate without chest pain or diagnostic ST segment depression Arrhythmia: Rate PVCs are noted Echo Analysis Base Echo Analysis: Concentric left ventricular hypertrophy with normal LV systolic function Moderate to severe aortic stenosis with a possible bicuspid aortic valve Low Echo Anaylsis: Normal increase in augmentation Peak Echo Analysis: Normal hyperdynamic response Recovery Echo: Normal MEASUREMENTS (Male/Female) Normal Values 2D ECHO LV Diastolic Diameter PLAX 3.8 cm 4.2 - 5.9 / 3.9 - 5.3 cm LV Systolic Diameter PLAX 1.9 cm IVS Diastolic Thickness 1.8 cm 0.6 - 1.0 / 0.6 - 0.9 cm LVPW Diastolic Thickness 2.1 cm 0.6 - 1.0 / 0.6 - 0.9 cm LV Relative Wall Thickness 1.0 DOPPLER AV Peak Velocity 414.2 cm/s AV Peak Gradient 68.6 mmHg AV Mean Velocity 296.3 cm/s AV Mean Gradient 42.6 mmHg AV Velocity Time Integral 77.4 cm CONCLUSIONS Moderate to severe aortic stenosis Inconclusive dobutamine stress echo secondary to inability to attain target heart rate No evidence of dobutamine induced wall motion abnormalities at 81% of predicted maximal heart rate Advised the patient to follow-up with cardiology for further evaluation of the aortic stenosis Dr. Pernell Mancia MD (Electronically Signed) Final Date: 03 December 2021 11:57
== END | disposition home or self-care (01) ==
LOC: RADNMMAIN 08:39
PROVIDERS: ATTEND Internal Medicine
DX: I71.4 Abdominal aortic aneurysm, without rupture (principal)
CPT/HCPCS: 93351

== ENCOUNTER → 2022-08-12 | Outpatient (CLI) | payer MEDICARE ==
[2022-08-12 16:46] LABS: ALT 24 U/L (10-49); AST 23 U/L (14-35); African American GFR (CKD) 51.8 (60.0-200.0); Albumin 4.5 g/dL (3.8-4.9); Albumin/Globulin Ratio 1.97 (1.60-3.17); Alkaline Phosphatase 66 U/L (41-126); BUN/Creat Ratio 14.55 Ratio (12.00-20.00); Blood Urea Nitrogen 22.4 mg/dL (9.0-27.0); Calcium 9.9 mg/dL (8.7-10.3); Carbon Dioxide 25.5 mmol/L (20.0-27.5); Chloride 106 mmol/L (96-109); Chol/HDL Ratio 4.44 Ratio; Globulin 2.3 g/dL (1.6-3.3); Glucose 151 mg/dL (70-110); LDL Cholesterol,Calculated 85.8 mg/dL (0.0-131.0); Non-African American GFR(CKD) 44.7 (60.0-200.0); Sodium 142 mmol/L (135-145); Total Protein 6.8 g/dL (6.2-8.2)
== END | disposition home or self-care (01) ==
LOC: LABWHC1 09:31
PROVIDERS: ATTEND Nurse Practitioner Adult Health
DX: I10 Essential (primary) hypertension (principal); E78.2 Mixed hyperlipidemia
CPT/HCPCS: 36415; 80053; 80061

== ENCOUNTER → 2024-02-22 | Outpatient (CLI) | payer MEDICARE ==
[2024-02-22 16:36] LABS: ALT 18 U/L (10-49); AST 20 U/L (14-35); Albumin 4.4 g/dL (3.8-4.9); Albumin/Globulin Ratio 1.76 Ratio (1.60-3.17); Alkaline Phosphatase 64 U/L (41-126); BUN/Creat Ratio 11.94 Ratio (12.00-20.00); Blood Urea Nitrogen 19.1 mg/dL (9.0-27.0); Calcium 10.6 mg/dL (8.7-10.3); Carbon Dioxide 23.7 mmol/L (21.6-31.8); Chloride 106 mmol/L (96-109); Chol/HDL Ratio 4.74 Ratio; Globulin 2.5 g/dL (1.6-3.3); Glucose 135 mg/dL (70-110); LDL Cholesterol,Calculated 94.1 mg/dL (0.0-131.0); Potassium 4.9 mmol/L (3.5-5.5); Sodium 142 mmol/L (135-145); Total Bilirubin 0.4 mg/dL (0.3-1.2); Total Protein 6.9 g/dL (6.2-8.2)
== END | disposition home or self-care (01) ==
LOC: LABWHC1 10:23
PROVIDERS: ATTEND Internal Medicine Interventional Cardiology
DX: E78.2 Mixed hyperlipidemia (principal)
CPT/HCPCS: 36415; 80053; 80061